=== PATIENT | female | born 1985 | race Caucasian/White ===

== ENCOUNTER 2016-11-29 08:29 | Emergency (ER) | payer MEDICAID, OTHER ==
[2016-11-29] MEDS ORDERED: CARBAMIDE PEROXIDE 15 ML BOTTLE RTEAR ONE (08:49)
[2016-11-29] MEDS ORDERED: IBUPROFEN 200 MG TAB PO ONE (08:49)
--- NOTE | 2016-11-29 08:52 | UCPHY ---
H & P Time Seen by Provider: 11/29/16 08:42 Patient Type: Established HPI/ROS: This patient reports a 2 week history of nasal congestion with a one-week history of the left-sided more than right side ear pain of moderate intensity that waxes and wanes. She developed associated subjective fevers and occasional chills over the past 4 5 days. She has partial improvement from over -the-counter analgesics. ROS: No high fevers. HEENT: No sore throat. She has right-sided maxillary sinus pressure that is moderate. Pulmonary: No cough shortness of breath GI: No vomiting 7 point ROS is otherwise negative. Social History: Sober for 6 years. Smoking Status: Current every day smoker Physical Exam: Physical Exam Vital signs are normal. General: No acute distress HEENT: Nose: Clear discharge bilaterally. No sinus tenderness to percussion. Ears: Left external canals clear left TM is dull and erythematous with a a cloudy serous effusion. Right external canal is obstructed by cerumen impaction Oropharynx: No erythema or exudates. No dysphonia. No drooling or stridor. Neck: Supple Eyes: Pupils equal and react to light. Extraocular motions are intact. Lungs: Clear to auscultation bilaterally with no rales, rhonchi or wheeze. No respiratory distress. Cardiac: Regular rate and rhythm with no murmur gallop or rub Skin: No rash or pallor. Neuro: Alert with no focal deficits noted. Constitutional: Initial Vital Signs Temperature (C) 36.7 C 11/29/16 08:45 Heart Rate 90 11/29/16 08:45 Respiratory Rate 18 11/29/16 08:45 Blood Pressure 135/74 H 11/29/16 08:45 O2 Sat (%) 98 11/29/16 08:45 O2 Delivery Mode Room Air Allergies/Adverse Reactions: No Known Allergies Allergy (Verified 11/29/16 09:08) Home Medications: Medication Instructions Recorded Sertraline HCl [Zoloft 100mg (RX)] 100 mg PO DAILY 08/04/12 Wellbutrin Sr 06/25/14 Amoxicillin Trihydrate 500 mg PO TID #30 cap 11/29/16 [Amoxicillin] MDM/Departure - MDM Medications Given: Discontinued Medications Carbamide Peroxide (Debrox) 5 drop RTEAR EDNOW ONE Stop: 11/29/16 08:50 Last Admin: 11/29/16 09:10 Dose: 5 drops Ibuprofen (Motrin) 600 mg PO EDNOW ONE Stop: 11/29/16 08:50 Last Admin: 11/29/16 09:10 Dose: 600 mg ED Course/Re-evaluation: Debrox followed by irrigation by our tech with removal of cerumen. On recheck patient's external canal appears normal exception of a superficial abrasion from the irrigation she has the erythematous TM is serous effusion on the right as well. - Depart Disposition: Home, Routine, Self-Care Clinical Impression: Impacted cerumen of right ear Otitis media Qualifiers: Otitis media type: serous Laterality: bilateral Chronicity: acute Recurrence: not specified as recurrent Qualified Code(s): H65.03 - Acute serous otitis media , bilateral Condition: Good Instructions: Otitis Media (ED) Additional Instructions: Diagnosis: Otitis media 2. Cerumen impaction-resolved Plan: Ibuprofen Humidifier Amoxil antibiotic Return for any significant worsening despite the treatment plan. Prescriptions: Amoxicillin Trihydrate [Amoxicillin] 500 mg PO TID #30 cap Referrals: Rosa Werner PA [Primary Care Provider] - As per Instructions - PQRS PQRS Measurement: NA
[2016-11-29 09:10] VITALS: BP 135/74; PULSE 90; RESP 18; TEMP 98.1; O2SAT 98
== END 2016-11-29 09:50 | disposition home or self-care (01) ==
LOC: CED 08:29
DX: H65.03 Acute serous otitis media, bilateral (principal); F17.200 Nicotine dependence, unspecified, uncomplicated
CPT/HCPCS: 99214-PO; G0463-PO